=== PATIENT | male | born 1935 | race Caucasian/White ===

== ENCOUNTER → 2022-05-22 10:29 | Outpatient (BNVA) | payer MEDICARE, SELFPAY | PROVIDERS: PCP Family Medicine; Visit Provider Family Medicine | DX: I48.19 Other persistent atrial fibrillation (principal); E78.49 Other hyperlipidemia; I10 Essential (primary) hypertension; I25.10 Atherosclerotic heart disease of native coronary artery without angina pectoris; E78.5 Hyperlipidemia, unspecified | CPT/HCPCS: 80053; 80061; 85025 ==

== ENCOUNTER → 2022-07-23 13:12 | Outpatient (BNVA) | payer MEDICARE, SELFPAY | PROVIDERS: PCP Family Medicine; Visit Provider Internal Medicine Cardiovascular Disease | DX: I48.19 Other persistent atrial fibrillation (principal); E78.49 Other hyperlipidemia; I10 Essential (primary) hypertension; I25.10 Atherosclerotic heart disease of native coronary artery without angina pectoris; Z95.1 Presence of aortocoronary bypass graft; Z95.0 Presence of cardiac pacemaker | CPT/HCPCS: 99213 ==

== ENCOUNTER → 2022-10-09 15:36 | Outpatient (BNVA) | payer MEDICARE, SELFPAY | PROVIDERS: PCP Family Medicine; Visit Provider Internal Medicine Cardiovascular Disease | DX: Z45.010 Encounter for checking and testing of cardiac pacemaker pulse generator [battery] (principal) | CPT/HCPCS: 93296 ==

== ENCOUNTER → 2022-12-26 08:48 | Outpatient (BNVA) | payer MEDICARE, SELFPAY | PROVIDERS: PCP Family Medicine; Visit Provider Family Medicine | DX: E78.5 Hyperlipidemia, unspecified (principal); G62.89 Other specified polyneuropathies; I10 Essential (primary) hypertension; I48.91 Unspecified atrial fibrillation; I25.10 Atherosclerotic heart disease of native coronary artery without angina pectoris | CPT/HCPCS: 80053; 80061; 85025 ==

== ENCOUNTER 2023-01-03 09:47 | Outpatient (CLI) | payer MEDICARE, SELFPAY ==
--- NOTE | 2023-01-03 10:11 | XR_ITS ---
WS: [id number] Chest 2 views, 01/03/2023 Clinical Data: r/o pneumonia Comparison: Portable chest, 10/14/2019 Findings: There is a patchy opacity in the right middle lobe which may represent atelectasis and/or p neumonia. No nodules, masses or effusions are seen. The heart is normal. The pulmonary vascularity is not increased. No pneumothorax is seen. The aortic arch and descending thoracic aorta show tortuosit y. There are midline sternotomy sutures. The 2-lead cardiac pacemaker remains in the same position wi th the generator overlying the left upper chest. XR/XR chest 2V* [id number] Impression: 1. Patchy opacity in right middle lobe which may represent atelectasis and/or m inimal pneumonia. 2. Atherosclerosis.
== END 2023-01-03 09:48 | disposition home or self-care (01) ==
PROVIDERS: PCP Family Medicine; Visit Provider Family Medicine
DX: R05.9 Cough, unspecified (principal); R91.8 Other nonspecific abnormal finding of lung field; I70.90 Unspecified atherosclerosis
CPT/HCPCS: 71046

== ENCOUNTER 2023-01-09 10:47 | Inpatient (IN) | payer MEDICARE, SELFPAY ==
[2023-01-09] VITALS (14 sets, daily range): BP systolic 128–157; BP diastolic 72–89; PULSE 79–95; RESP 18–91; TEMP 36.8–37; O2SAT 3–95
--- NOTE | 2023-01-09 10:55 | W.ED.SOB ---
HPI - SOB/Dyspnea General: Chief Complaint: Shortness of Breath/Dyspnea Stated Complaint: Spurling sent for sob Time Seen by Provider: 01/09/23 10:55 History of Present Illness: HPI Narrative: Mr. Landaverde is a an 87-year-old gentleman with history of CAD, atrial fibrillation, hypertension, hyperlipidemia presenting to the emergency department for shortness of breath. He generally notes symptoms for approximately 1 month and was treated with a course of outpatient antibiotics. Initially had improvement and then worsening again. He returned to PCP and has subsequently completed a course of ciprofloxacin without significant improvement. He received Rocephin in clinic yesterday and despite this return today feeling worse. He has new oxygen requirement since this illness which has now gone from 2 to 3 L. Dyspnea is worse with exertion. He does note cough and generalized malaise. Intensity is moderate to severe. No other specific changes in health, exacerbating, or alleviating factors identified. Onset (ago): week(s) Timing: progressively worsening Severity: severe Exacerbating factors: exertion and coughing Relieving factors: nothing Associated symptoms: Reports chest congestion, chest pain (Tightness) and cough Review of Systems General: Reports: 10 or more systems reviewed and unremarkable except in HPI and below Card: Reports: chest pain (Tightness) Resp: Reports: chest congestion [facility] PFSH: Medical History Atrial fibrillation Stable Coronary artery disease Patient had a four-vessel coronary bypass surgery in 2000 in [place] Hyperlipidemia Hypertension Stable Surgical History S/P CABG (coronary artery bypass graft) S/P cardiac pacemaker procedure Family History Father , age 60 [place] Myocardial infarction CAD (coronary artery disease) Brother , age 52 [place] Myocardial infarction CAD (coronary artery disease) Son Myocardial infarction age 49 [place] CAD (coronary artery disease) Family/Other Suicide Other Hypertension Denies family history of Diabetes Clotting disorder Dementia Chronic kidney disease (CKD) Anesthesia complication Bleeding disorder Lung disease Cancer Stroke Social History Smoking and tobacco status: never smoked Alcohol intake: never Substance/Drug Use: never Highest education level completed: Some College, No Degree service: No Financial difficulty paying for basics: Not Applicable Physical Exam Const: COMMON NORMALS: alert GENERAL APPEARANCE: cooperative, well developed and ill appearing HENMT: COMMON NORMALS: normocephalic and atraumatic HEAD & SCALP: normocephalic and atraumatic Eye: COMMON NORMALS: conjunctivae normal CONJUNCTIVA: Yes conjunctivae normal SCLERA: sclerae normal Neck/C-Spine: COMMON NORMALS: supple GENERAL: Yes trachea midline Resp: EFFORT & INSPECTION: Yes tachypneic AUSCULTATION: wheezes and diminished lung sounds Cardio: COMMON NORMALS: regular rate and regular rhythm RATE: regular rate RHYTHM: regular rhythm GI: COMMON NORMALS: Soft to palpation PALPATION: Yes Soft to palpation and No Tenderness to palpation present (GI) PERCUSSION: normal to percussion Extremity: GENERAL: Yes normal exam except as noted and No edema Neuro: COMMON NORMALS: moves all extremities SENSORIUM/ORIENTATION: Yes alert and No Orientation impaired Psych: COMMON NORMALS: mental status grossly normal and Normal thought process present THOUGHT PROCESS: Normal thought process present Course Vital Signs: Vital signs: Vital Signs Temperature 97.9 F 01/12/23 12:03 Pulse Rate 72 01/12/23 12:03 Respiratory Rate 18 01/12/23 12:03 Blood Pressure 137/69 01/12/23 12:03 Pulse Oximetry 96 01/12/23 12:03 Oxygen Delivery Me thod Nasal Cannula 01/12/23 07:51 Oxygen Flow Rate 4 01/12/23 08:00 MDM - SOB/Dyspnea Medical Decision Making 87-year-old gentleman presenting with respiratory symptoms. Exam as above with oxygen requirement and evidence of increased work of breathing/abnormal lung sounds. EKG demonstrates paced rhythm, no STEMI. Labs with no leukocytosis, normal hemoglobin and platelet count metabolic panel without significant derangement. Negative range 2-hour delta troponin. Viral panel pending. X-ray with emphysematous changes. CTA negative for pulmonary embolism. Patient treated with inhaled breathing treatments, steroids, Tessalon Perles, antibiotics empirically initially and still requiring oxygen with evidence of increased work of breathing on reassessment. Most likely etiology of symptoms of COPD exacerbation with likely pneumonia. The results of ED evaluation were discussed with the patient including plan for admission due to requirement for level of care not available if discharged to prevent significant worsening/deterioration. Patient agreeable with plan. Discussed with hospitalist service who was agreeable to admit patient. Medical Records I reviewed the patient's medical records. Lab Data I reviewed the patient's lab results. 01/12/23 04:28 01/12/23 04:28 Labs/Radiology: Radiology Impressions Chest X-Ray 01/09/23 11:04 IMPRESSION: Emphysematous change and interstitial prominence, without acute airspace disease. Chest CTA 01/09/23 12:18 IMPRESSION: 1. Proximal main pulmonary arteries are normal. Normal segmental and subsegmental pulmonary arteries. No evidence of pulmonary embolus. 2. Prior sternotomy with CABG. 3. 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 4. No acute pulmonary infiltrates. KUB X-Ray 01/09/23 15:55 IMPRESSION: Large colonic stool burden. Laboratory Results WBC 9.9 10^3/uL (4.0-10.0) 01/09/23 11:24 RBC 4.92 10^6/uL (4.1-5.3) 01/09/23 11:24 Hgb 15.3 g/dL (11.7-16.6) 01/09/23 11:24 Hct 48.1 % (42.0-52.0) 01/09/23 11:24 MCV 97.8 fl (80-94) H 01/09/23 11:24 MCH 31.1 pg (28.0-34.0) 01/09/23 11:24 MCHC 31.8 g/dL (30.0-36.0) 01/09/23 11:24 RDW 13.9 % (12.1-15.1) 01/09/23 11:24 Plt Count 170 10^3/cmm (130-400) 01/09/23 11:24 MPV 9.6 fL (7.4-10.4) 01/09/23 11:24 Neut % (Auto) 64.5 % 01/09/23 11:24 Lymph % (Auto) 16.4 % 01/09/23 11:24 [place] % (Auto) 10.9 % 01/09/23 11:24 Eos % (Auto) 6.9 % 01/09/23 11:24 Baso % (Auto) 0.8 % 01/09/23 11:24 Neut # (Auto) 6.40 10^3/uL (1.8-7.7) 01/09/23 11:24 Lymph # (Auto) 1.6 10^3/uL (0.8-4.8) 01/09/23 11:24 [place] # (Auto) 1.1 10^3/uL (0.2-0.9) H 01/09/23 11:24 Eos # (Auto) 0.7 10^3/uL (0.0-0.8) 01/09/23 11:24 Baso # (Auto) 0.1 10^3/uL (0.0-0.1) 01/09/23 11:24 Nucleated RBC % (auto) 0 % 01/09/23 11:24 Nucleated RBCs # 0.0 /100WBC 01/09/23 11:24 Sodium 136 mmol/L (136-145) 01/09/23 11:24 Potassium 4.5 mmol/L (3.5-5.1) 01/09/23 11:24 Chloride 97 mmol/L (98-107) L 01/09/23 11:24 Carbon Dioxide 27 mmol/L (22-29) 01/09/23 11:24 Anion Gap 16.5 (5-19) 01/09/23 11:24 BUN 16 mg/dL (8-23) 01/09/23 11:24 Creatinine 1.1 mg/dL (0.7-1.2) 01/09/23 11:24 GFR Calculation Not Reportable 01/09/23 11:24 Glucose 94 mg/dL (65-115) 01/09/23 11:24 Calculated Osmolality 283 mOsm/kg (285-295) L 01/09/23 11:24 Lactic Acid 1.4 mmol/L (0.5-2.2) 01/09/23 12:10 Calcium 9.9 mg/dL (8.5-10.5) 01/09/23 11:24 Total Bilirubin 0.8 mg/dL (0.15-1.2) 01/09/23 11:24 AST 27 U/L (0-40) 01/09/23 11:24 ALT 17 U/L (0-41) 01/09/23 11:24 Alkaline Phosphatase 57 U/L (40-130) 01/09/23 11:24 Troponin T Baseline 35 ng/L (0-15) H 01/09/23 11:32 Troponin T 120 Minute 32.93 ng/L (0-15) H 01/09/23 13:15 Delta Troponin T -2.07 ABS# (0-10) L 01/09/23 13:15 C-Reactive Protein 22.3 mg/L (0.0-4.9) H 01/09/23 11:24 NT-Pro-B Natriuret Pep 325 pg/mL (0-450) 01/09/23 11:24 Total Protein 7.0 g/dL (6.6-8.7) 01/09/23 11:24 Albumin 4.5 g/dL (3.5-5.2) 01/09/23 11:24 Globulin 2.5 g/dL (1.3-4.6) 01/09/23 11:24 Procalcitonin 0.04 ng/mL (0-0.5) 01/09/23 11:24 TSH 2.23 uIU/mL (0.27-4.20) 01/09/23 11:24 Nasal Influ A H1 2009 PCR Not detected (NOT DETECT) 01/09/23 11:30 Adenovirus (PCR) Not detected (NOT DETECT) 01/09/23 11:30 C. pneumoniae DNA (PCR) Not detected (NOT DETECT) 01/09/23 11:30 Coronavirus 229E (PCR) Not detected (NOT DETECT) 01/09/23 11:30 Human Metapneumovir PCR Not detected (NOT DETECT) 01/09/23 11:30 Influenza A (H1) PCR Not detected (NOT DETECT) 01/09/23 11:30 Influenza A (H3) PCR Not detected (NOT DETECT) 01/09/23 11:30 Influenza Type A (PCR) Not detected (NOT DETECT) 01/09/23 11:30 Influenza Type B (PCR) Not detected (NOT DETECT) 01/09/23 11:30 M. pneumoniae (PCR) Not detected (NOT DETECT) 01/09/23 11:30 Parainfluenza 1 (PCR) Not detected (NOT DETECT) 01/09/23 11:30 Parainfluenza 2 (PCR) Not detected (NOT DETECT) 01/09/23 11:30 Parainfluenza 3 (PCR) Not detected (NOT DETECT) 01/09/23 11:30 Parainfluenza 4 (PCR) Not detected (NOT DETECT) 01/09/23 11:30 RSV Type A (PCR) Not detected (NOT DETECT) 01/09/23 11:30 RSV Type B (PCR) Not detected (NOT DETECT) 01/09/23 11:30 Entero/Rhino (PCR) Not detected (NOT DETECT) 01/09/23 11:30 SARS-CoV-2 (PCR) Not detected (NOT DETECT) 01/09/23 11:30 Discharge Plan Discharge Patient Disposition: Admitted As Inpatient Admit Provider: Wilver Clarke Clinical Impression: Acute exacerbation of chronic obstructive airways disease Condition: Stable Discharge Diet: Cardiac Discharge Activity: Resume usual activity Coding Level of Care Code ED Stopping Builder for John Arndt
--- NOTE | 2023-01-09 11:04 | XRR_ITS ---
PROCEDURE INFORMATION: Exam: XR Chest Exam date and time: 01/09/2023 12:07 PM Age: 87 years old Clinical indication: Shortness of breath; Prior surgery; Surgery date: 6+ months; Surgery type: Pacer, bypass; Patient HX: HX of prostate cancer; Additional info: SOB TECHNIQUE: Imaging protocol: Radiologic exam of the chest. Views: 1 view. COMPARISON: CR XR chest 2V* [id number] 01/03/2023 10:23 AM FINDINGS: Tubes, catheters and devices: Atrioventricular pacemaker. Lungs: Emphysematous change and interstitial prominence, without acute airspace disease. Pleural spaces: No pleural effusion. Heart/Mediastinum: Epicardial fat, without cardiomegaly. Bones/joints: Median sternotomy with broken sutures. Osteopenia and degenerative change. XR/XR chest 1V portable [id number] IMPRESSION: Emphysematous change and interstitial prominence, without acute airspace disease.
--- NOTE | 2023-01-09 11:05 | ECG_ITS ---
[facility] Test Date: 2023-01-09 Pat Name: Kan Landaverde Department: Room: Gender: Male Clinical Specialty Rep: : 1935 Requested By: Gage Richards Order Number: [id number] Alyson MD: Jose Jorge M.D. Measurements Intervals [place] Rate: 103 P: 231 ID: [id number] QRS: -67 QRSD: 144 T: 46 QT: 374 QTc: 491 Interpretive Statements ELECTRONIC ATRIAL PACEMAKER LEFT AXIS DEVIATION [QRS AXIS < -30] RIGHT BUNDLE BRANCH BLOCK [120+ ms QRS DURATION, UPRIGHT V1, 40+ ms S IN I/aVL/V4/V5/V6] Compared to ECG 10/15/2019 05:26:54 Left-axis deviation now present Right bundle-branch block now present Sinus rhythm no longer present T-wave abnormality no longer present Electronically Signed On 01-09-2023 22:22:24 CDT by Jose Jorge M.D. [id number]
[2023-01-09] MEDS: ipratropium-albuterol 3 mL Neb INHALATION ×2 (11:21→20:09)
[2023-01-09] MEDS: predniSONE 20 mg Tablet 60 MG PO (11:28)
[2023-01-09 11:44] LABS: Basophils # 0.1 10^3/uL (0.0-0.1); Basophils % 0.8 %; Eosinophils # 0.7 10^3/uL (0.0-0.8); Eosinophils % 6.9 %; Hematocrit 48.1 % (42.0-52.0); Hemoglobin 15.3 g/dL (11.7-16.6); Lymphocytes # 1.6 10^3/uL (0.8-4.8); Lymphocytes % 16.4 %; Mean Corpuscular HGB Conc 31.8 g/dL (30.0-36.0); Mean Corpuscular Hemoglobin 31.1 pg (28.0-34.0); Mean Corpuscular Volume 97.8 fl (80-94); Mean Platelet Volume 9.6 fL (7.4-10.4); Monocytes # 1.1 10^3/uL (0.2-0.9); Monocytes % 10.9 %; Neutrophils % 64.5 %; Nucleated Red Blood Cells % 0 %; Platelet Count 170 10^3/cmm (130-400); Red Blood Count 4.92 10^6/uL (4.1-5.3); Red Cell Distribution Width 13.9 % (12.1-15.1); White Blood Count 9.9 10^3/uL (4.0-10.0)
[2023-01-09] MEDS: benzonatate 100 mg Capsule PO ×2 (11:55→23:06)
[2023-01-09 12:02] LABS: Troponin(5th) Baseline 35 ng/L (0-15)
[2023-01-09] MEDS: cefepime 2,000 MG in sodium chloride 0.9% (plus) 50 ML 100 MG IV ×2 (12:09→22:39)
--- NOTE | 2023-01-09 12:18 | CT_ITS ---
WS: [id number] CTA OF THE CHEST WITH PULMONARY EMBOLISM PROTOCOL TECHNIQUE: High-resolution contrast enhanced CTA of the chest with coronal and sagittal reformatted i mages with pulmonary embolism protocol. MIP images are also reviewed. CLINICAL INFORMATION: cough, sob COMPARISON: None. DLP: 479.[address] scans at [facility] use at least one of these dose optimization techniques: automated e xposure control; mA and/or kV adjustment per patient size (includes targeted exams where dose is matc hed to clinical indication); or iterative reconstruction. FINDINGS: Proximal main pulmonary arteries are normal. Normal segmental and subsegmental pulmonary arteries. No evidence of pulmonary embolus. Sternotomy. CABG. Slightly aneurysmal ascending thoracic aorta measur ing 4.1 CM. Mild chronic emphysematous changes. No acute pulmonary infiltrates. No focal pneumonia or pleural flu id. Slight bibasilar atelectasis. Normal GE junction. Adrenal glands are normal. Splenic artery calci fication. Hypertrophic changes thoracic spine. CT/CT angio chest PE protcl [id number] IMPRESSION: 1. Proximal main pulmonary arteries are normal. Normal segmental and subsegmen bertha pulmonary arteries. No evidence of pulmonary embolus. 2. Prior sternotomy with CABG. 3. 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 4. No acute pulmonary infiltrates.
[2023-01-09 12:20] LABS: NT Pro B Type Natriuretic Pept 325 pg/mL (0-450); Procalcitonin 0.04 ng/mL (0-0.5)
[2023-01-09 12:32] LABS: Alanine Aminotransferase 17 U/L (0-41); Albumin Level 4.5 g/dL (3.5-5.2); Alkaline Phosphatase 57 U/L (40-130); Anion Gap 16.5 (5-19); Aspartate Amino Transferase 27 U/L (0-40); Blood Urea Nitrogen 16 mg/dL (8-23); C Reactive Protein 22.3 mg/L (0.0-4.9); Calcium 9.9 mg/dL (8.5-10.5); Carbon Dioxide 27 mmol/L (22-29); Chloride 97 mmol/L (98-107); Globulin 2.5 g/dL (1.3-4.6); Glucose 94 mg/dL (65-115); Osmolality Calculated 283 mOsm/kg (285-295); Potassium 4.5 mmol/L (3.5-5.1); Sodium 136 mmol/L (136-145); Total Bilirubin 0.8 mg/dL (0.15-1.2)
[2023-01-09 12:38] LABS: Lactic Sepsis W/Reflex 1.4 mmol/L (0.5-2.2)
[2023-01-09] MEDS: iohexol 350 mg/mL 500 mL Btl (per mL) IV (12:58)
[2023-01-09] MEDS: vancomycin 2,000 MG/400 ML PIGGYBACK 200 MG IV (13:03)
--- NOTE | 2023-01-09 13:05 | ECG_ITS ---
[facility] Test Date: 2023-01-09 Pat Name: Kan Landaverde Department: Room: Gender: Male Marine Consultant: : 1935 Requested By: Gage Richards Order Number: [id number] Alyson MD: Jose Jorge M.D. Measurements Intervals [place] Rate: 75 P: -67 IN: 189 QRS: 10 QRSD: 102 T: 59 QT: 412 QTc: 462 Interpretive Statements ELECTRONIC ATRIAL PACEMAKER ABNORMAL RHYTHM ECG Compared to ECG 01/09/2023 11:16:30 Left-axis deviation no longer present Right bundle-branch block no longer present Electronically Signed On 01-09-2023 22:43:33 CDT by Jose Jorge M.D. [id number]
[2023-01-09 13:27] LABS: Adenovirus Not Detected (NOT DETECT); Chlamydia Pneumoniae Not Detected (NOT DETECT); Coronavirus 229E,HKU1,NL63,OC4 Not Detected (NOT DETECT); Human Metapneumovirus Not Detected (NOT DETECT); Human Rhinovirus/Enterovirus Not Detected (NOT DETECT); Influenza A Not Detected (NOT DETECT); Influenza A H1 Not Detected (NOT DETECT); Influenza A H1-2009 Not Detected (NOT DETECT); Influenza A H3 Not Detected (NOT DETECT); Influenza B Not Detected (NOT DETECT); Mycoplasma Pneumoniae Not Detected (NOT DETECT); Parainfluenza Virus Type 1 Not Detected (NOT DETECT); Parainfluenza Virus Type 2 Not Detected (NOT DETECT); Parainfluenza Virus Type 3 Not Detected (NOT DETECT); Parainfluenza Virus Type 4 Not Detected (NOT DETECT); Respiratory Syncytial Virus A Not Detected (NOT DETECT); Respiratory Syncytial Virus B Not Detected (NOT DETECT); SARS-COV-2 Not Detected (NOT DETECT)
[2023-01-09 13:42] LABS: Troponin 5 2HR 32.93 ng/L (0-15)
[2023-01-09 13:43] LABS: Troponin 5 2HR Delta -2.07 ABS# (0-10)
[2023-01-09] MEDS: albuterol 2.5 mg/3 mL Neb INHALATION (13:45)
--- NOTE | 2023-01-09 15:01 | PM.HP ---
Providers/Chief Complaint Admitting Physician: Wilver Clarke MD Primary Care Provider: Jan De Paz MD Chief Complaint: Spurling sent for sob History of Present Illness Kan Landaverde is a 87 year old male with a past medical history of fibrillation, not on anticoagulation, history of CABG, hypertension, hyperlipidemia, who has been on multiple rounds of antibiotics, steroids, for about a month history of cough, shortness of breath, fatigue, malaise. Patient tells me that his symptoms started roughly about a month ago where he went to urgent care he was having cough, shortness of breath, fevers, chills, he was given an antibiotic shot, which she presume is the Rocephin, and Decadron. However he did get better, so he saw his primary care was given another shot of steroids and antibiotics, but continued to not improve, then he was placed on ciprofloxacin. He denies any chest pain, no palpitations. Does complain of constipation. Abdominal bloating. No bloody or black stools reported. He does report that recently he has been coughing and choking more after meals. No history of aspiration. No fevers currently, no chills. No recent travel. No history of COVID-19. No history of calf pain or calf swelling, hemoptysis, no recent surgeries, no prolonged immobility, Review of Systems Const: Denies: fever(s) or chills Eyes: Denies: change in vision Card: Reports: edema; Denies: chest pain Resp: Reports: dyspnea and non-productive cough GI: Denies: abdominal pain : Denies: flank pain or difficulty urinating Musc: Denies: neck pain or back pain Skin/Breast: Denies: rash Neuro: Denies: headache(s) Medications/Allergies Home Medications Medication Instructions Recorded Confirmed Last Taken Type aspirin 81 mg chewable tablet 81 mg PO BID 10/14/19 01/09/23 01/08/23 History cholecalciferol (vitamin D3) 25 1,000 unit PO DAILY 10/14/19 01/09/23 01/08/23 History mcg (1,000 unit) capsule (Vitamin D3) gabapentin 100 mg capsule 100 mg PO BID 01/25/20 01/09/23 01/08/23 History Walking Cane #1 ea 05/11/20 01/09/23 Unknown Rx clopidogrel 75 mg tablet 75 mg PO DAILY #90 tabs 05/22/22 01/09/23 01/08/23 Rx losartan 25 mg tablet 25 mg PO DAILY #30 tabs 05/22/22 01/09/23 01/08/23 Rx isosorbide mononitrate 30 mg 30 mg PO BID #180 tabs 07/17/22 01/09/23 01/08/23 Rx tablet,extended release 24 hr albuterol sulfate 90 mcg/actuation 2 puff inhalation Q4H PRN 12/31/22 01/09/23 Unknown Rx aerosol inhaler (Ventolin HFA) shortness of breath or wheezing #8.5 grams ciprofloxacin HCl 500 mg tablet 500 mg PO BID #20 tabs 12/31/22 01/09/23 Unknown Rx oxygen at 2L per NC #1 ea 12/31/22 01/09/23 Unknown Rx dextromethorphan-guaifenesin 10 10 ml PO Q4H PRN Cough 01/09/23 01/09/23 Unknown History mg-100 mg/5 mL oral syrup (Qamar DM) ranolazine 500 mg tablet,extended 500 mg PO BID 01/09/23 01/09/23 01/08/23 History release,12 hr rosuvastatin 20 mg tablet (Crestor) 20 mg PO QPM 01/09/23 01/09/23 01/08/23 History sertraline 100 mg tablet 100 mg PO DAILY 01/09/23 01/09/23 01/08/23 History sodium chloride 5 % eye ointment See Rx Instructions .Route .COMPLEX 01/09/23 01/09/23 Unknown History (Enrique 128) sotalol 80 mg tablet 80 mg PO BID 01/09/23 01/09/23 01/08/23 History temazepam 15 mg capsule 15 mg PO QPM 01/09/23 01/09/23 01/08/23 History vitamin B12 2,500 mcg-folic acid 1 tab PO DAILY 01/09/23 01/09/23 01/08/23 History 400 mcg disintegrating tablet Allergies Allergy/AdvReac Type Severity Reaction Status Date / Time Penicillins Allergy Intermediate mouth swell Verified 01/09/23 11:04 morphine Allergy Unknown Verified 01/09/23 11:04 tetanus and diphtheria Allergy Unknown Verified 01/09/23 11:04 toxoids azithromycin AdvReac Intermediate diarrhea Verified 01/09/23 11:04 PFSH Acute PFSH: Medical History Atrial fibrillation Stable Coronary artery disease Patient had a four-vessel coronary bypass surgery in 2000 in [place] Hyperlipidemia Hypertension Stable Surgical History S/P CABG (coronary artery bypass graft) S/P cardiac pacemaker procedure Family History Father , age 60 [place] Myocardial infarction CAD (coronary artery disease) Brother , age 52 [place] Myocardial infarction CAD (coronary artery disease) Son Myocardial infarction age 49 [place] CAD (coronary artery disease) Family/Other Suicide Other Hypertension Denies family history of Diabetes Clotting disorder Dementia Chronic kidney disease (CKD) Anesthesia complication Bleeding disorder Lung disease Cancer Stroke Social History Smoking and tobacco status: never smoked Alcohol intake: never Substance/Drug Use: never Highest education level completed: Some College, No Degree service: No Financial difficulty paying for basics: Not Applicable Vitals/I&O/Wt Last Vital Signs Temp 98.2 F 01/09/23 10:58 Pulse 83 01/09/23 13:50 Resp 91 H 01/09/23 13:47 BP 143/72 01/09/23 12:54 Pulse Ox 3 L 01/09/23 13:47 O2 Del Method Nasal Cannula 01/09/23 13:47 O2 Flow Rate 3 01/09/23 12:28 01/09/23 01/09/23 01/09/23 06:59 14:59 22:59 Intake Total 50 / 50 Balance 50 / 50 Weight last 48 hrs Weight 104.326 kg Physical Exam Const: COMMON NORMALS: no acute distress and patient oriented x3 GENERAL APPEARANCE: cooperative, well kempt and well developed HENMT: COMMON NORMALS: normocephalic and Normal external nose present HEAD & SCALP: normocephalic NOSE: Normal external nose present THROAT: posterior oropharynx normal Eye: COMMON NORMALS: Equal, round and reactive pupils present, EOMs intact bilaterally, conjunctivae normal and no scleral icterus CONJUNCTIVA: Yes conjunctivae normal PUPIL: Yes Equal, round and reactive pupils present Neck/C-Spine: COMMON NORMALS: full ROM, no lymphadenopathy, no JVD, Thyroid normal and No carotid bruits THYROID: Thyroid normal Lymph: LYMPHATIC: no lymphadenopathy noted Chest: COMMONS NORMALS: normal inspection of the chest Resp: COMMON NORMALS: normal respiratory effort, No retractions and No use of accessory muscles AUSCULTATION: wheezes Cardio: COMMON NORMALS: regular rate, regular rhythm, S1 normal heart sound present, S2 normal heart sound present, No murmurs present (Cardio) and Peripheral pulses 2+ throughout RATE: regular rate RHYTHM: regular rhythm HEART SOUNDS: S1 normal heart sound present and S2 normal heart sound present PERIPHERAL PULSES: Peripheral pulses 2+ throughout GI: COMMON NORMALS: Normal to inspection, nondistended, normoactive bowel sounds present, Soft to palpation and non-tender PALPATION: Yes Soft to palpation and Yes No hepatosplenomegaly present : BLADDER/KIDNEY EXAM: Yes no CVA tenderness Back/Pelvis: COMMON NORMALS: no CVA tenderness Extremity: COMMON NORMALS: full ROM, no calf tenderness and no pedal edema Neuro: COMMON NORMALS: patient oriented x3, CN's II-XII intact bilaterally, moves all extremities, no focal motor deficits and no sensory deficits noted MENINGEAL SIGNS: Yes no meningeal signs Psych: COMMON NORMALS: mental status grossly normal, Normal thought process present, cooperative and speech normal APPEARANCE: Yes well kempt SPEECH: Yes normal speech THOUGHT PROCESS: Normal thought process present Skin: COMMON NORMALS: turgor normal and no jaundice GENERAL SKIN EXAM: turgor normal Data 01/09/23 11:24 01/09/23 11:24 Micro: Microbiology 01/09/23 11:24 Blood Culture - Preliminary Blood SPECIMEN COLLECTED 01/09/23 11:24 Blood Culture - Preliminary Blood SPECIMEN COLLECTED CXR: My impression: No acute infiltrates EKG 1: My Interpretation: Pacemaker, sinus tachycardia, right bundle branch block, paced rhythm, Other data: Reviewed blood work, A&P Assessment and plan (1) Acute respiratory failure with hypoxia: (2) Acute exacerbation of chronic obstructive airways disease: (3) S/P CABG (coronary artery bypass graft): (4) Atrial fibrillation: Qualifiers: Atrial fibrillation type: persistent (not longstanding) Qualified Code(s): I48.19 - Other persistent atrial fibrillation (5) Hyperlipidemia: Qualifiers: Hyperlipidemia type: other hyperlipidemia Qualified Code(s): E78.49 - Other hyperlipidemia (6) Hypertension: Qualifiers: Hypertension type: unspecified Qualified Code(s): I10 - Essential (primary) hypertension (7) Coronary artery disease: Qualifiers: Coronary Disease-Associated Artery/Lesion type: [place] artery [place] vs. transplanted heart: [place] heart Associated angina: without angina Qualified Code(s): I25.10 - Atherosclerotic heart disease of [place] coronary artery without angina pectoris (8) Pneumonia: Plan Acute hypoxic respiratory failure -Potentially secondary to underlying pneumonia, has had multiple rounds of antibiotics, Rocephin, Decadron, Cipro however he has no white count, Pro-Shmuel within normal limits CRP slightly elevated, CT angiogram no focal infiltrates, could be typical infection -He did smoke he tells me roughly 50 years ago, has been a long time since he quit, possible COPD exacerbation? -Respiratory viral panel within normal limits -The other thought he does report choking and coughing after his meals, possible aspiration pneumonia, aspiration pneumonitis -We will place on clears, speech therapy eval -Follow blood cultures, sputum cultures, MRSA nares -Continue vancomycin, cefepime -Continue Decadron -Aspiration precautions -His troponins are slightly elevated, EKG no acute ST-T wave disc we will order cardiac echo -Resume home medications -Constipation, MiraLAX, KUB -Full code -Lovenox for DVT prophylaxis Spoke to ER physician, spoke to patient, spoke to patient's , daughters all at bedside Attestations Medical Necessity Statement*: Patient requires hospitalization for acute hypoxic respiratory failure, COPD exacerbation, pneumonia Diagnoses Acute respiratory failure with hypoxia J96.01 Acute exacerbation of chronic obstructive airways disease J44.1 S/P CABG (coronary artery bypass graft) Z95.1 Atrial fibrillation I48.19 Atrial fibrillation type: persistent (not longstanding) Hyperlipidemia E78.49 Hyperlipidemia type: other hyperlipidemia Hypertension I10 Hypertension type: unspecified Coronary artery disease I25.10 Coronary Disease-Associated Artery/Lesion type: [place] artery [place] vs. transplanted heart: [place] heart Associated angina: without angina Pneumonia J18.9
--- NOTE | 2023-01-09 15:55 | USCV_ITS ---
Kan Landaverde Age: 87 Gender: M : 1935 Exam Date: 01/09/2023 20:33 Ordering Phys: Wilver Clarke MD Technologist: REJI Exam Location: [facility] [place] Indication: sob, MAYER, fatigue, malaise. History CABG 2000, O2 dependent at 3L, cough, History of atrial fibrillation. BP: 144 / 79 HR: 85 Rhythm: paced rhythm Technical Quality: Very technically difficult and limited study MEASUREMENTS (Male / Female) Normal Values 2D ECHO LV Diastolic Diameter PLAX 3.5 cm 4.2 - 5.9 / 3.9 - 5.3 cm LV Systolic Diameter PLAX 2.6 cm IVS Diastolic Thickness 1.4 cm 0.6 - 1.0 / 0.6 - 0.9 cm IVS Systolic Thickness 1.7 cm LVPW Diastolic Thickness 1.3 cm 0.6 - 1.0 / 0.6 - 0.9 cm LVPW Systolic Thickness 1.8 cm LVOT Diameter 1.8 cm LV Ejection Fraction 2D Teich 51.4 % LV Ejection Fraction MOD 2C 54.1 % LV Ejection Fraction 2C AL 59.7 % LA Diameter 4.4 cm LA Width 4.8 cm LA Height 5.4 cm RA Width 4.2 cm RA Height 4.1 cm Aorta at Sinotubular Diameter 3.2 cm M-MODE Aortic Annulus Diameter 3.7 cm LA Ao Ratio MM 1.3 DOPPLER AV Peak Velocity 296.0 cm/s LVOT Peak Velocity 113.0 cm/s AV Area Cont Eq vti 1.2 cm squared AV Area Cont Eq pk 1.0 cm squared TR Peak Velocity 222.7 cm/s TR Peak Gradient 19.8 mmHg TV Peak E Velocity 38.0 cm/s Right Atrial Pressure 5.0 mmHg Pulmonary Artery Systolic Pressu 24.8 mmHg PV Peak Velocity 118.0 cm/s RV Acceleration Time 0.1 s RV Ejection Time 0.3 s RV AcT/ET 0.2 FINDINGS Left Ventricle Normal left ventricular cavity size. Normal left ventricular systolic function. Left ventricular ejection fraction is estimated at 55 %. Study is inadequate for regional wall motion abnormality. Right Ventricle Normal right ventricular size and systolic function. Right ventricular systolic pressure 27 mmHg. Right Atrium Normal right atrial size. Left Atrium Normal left atrial size. Mitral Valve Mildly thickened mitral valve. Aortic Valve Aortic valve not well visualized. No aortic valve stenosis. No aortic valve regurgitation. Tricuspid Valve Structurally normal tricuspid valve. Pulmonic Valve Pulmonic valve not well visualized. Pericardium No pericardial effusion. Aorta Aorta not well visualized. IVC Inferior vena cava not visualized. CONCLUSIONS 1. This is a technically difficult study. 2. Normal left ventricular cavity size and systolic function. Left ventricular ejection fraction is estimated at 55 %. Study is inadequate for regional wall motion abnormality. 3. No prior similar studies to compare. Kathy Green MD (Electronically Signed) Final Date: 10 Jan 2023 08:02 S
--- NOTE | 2023-01-09 15:55 | XRR_ITS ---
PROCEDURE INFORMATION: Exam: XR Abdomen Exam date and time: 01/09/2023 3:03 PM Age: 87 years old Clinical indication: Constipation; Prior surgery; Surgery date: 6+ months; Patient HX: HX of colon cancer TECHNIQUE: Imaging protocol: Radiologic exam of the abdomen. Views: Frontal supine view of the abdomen. 1 View. COMPARISON: CT kidney stone [id number] 04/15/2021 6:47 PM FINDINGS: Gastrointestinal tract: Large colonic stool burden. No bowel dilation. Bones/joints: Unremarkable. XR/XR KUB portable [id number] IMPRESSION: Large colonic stool burden.
--- NOTE | 2023-01-09 15:55 | USCV_ITS ---
Kan Landaverde Age: 87 Gender: M : 1935 Exam Date: 01/09/2023 19:00 Ordering Phys: Wilver Clarke MD Technologist: REJI Exam Location: [facility] [place] Indication: sob, malaise , fatigue. No history of DVT per patient. History of CAD s/p CABG utilizing LEFT GSV for grafting. HISTORY: sob, malaise , fatigue. No history of DVT per patient. History of CAD s/p CABG utilizing LEFT GSV for grafting. PROCEDURES: Venous duplex imaging was performed in bilateral lower extremities. The following venous structures were evaluated: common femoral vein, profunda vein, proximal portion of the greater saphenous vein, superficial femoral vein, and the popliteal vein. In addition, the posterior tibial veins were evaluated. Serial compression, augmentation maneuvers, and spectral Doppler flow evaluation were performed, which were normal. Bilaterally, the common femoral, superficial femoral, profunda femoral, popliteal, posterior tibial, and greater saphenous veins were identified and interrogated in the standard fashion. These veins were found to be easily compressible with spontaneous blood flow. No evidence of thrombus noted. Left greater saphenous vein is surgically absent s/p CABG. CONCLUSIONS No evidence of right lower extremity DVT. No evidence of left lower extremity DVT. LEFT GSV surgically absent s/p CABG Len Perez MD (Electronically Signed) Final Date: 10 Jan 2023 09:53 S
[2023-01-09 16:37] LABS: Thyroid Stimulating Hormone 2.23 uIU/mL (0.27-4.20)
--- NOTE | 2023-01-09 16:41 | PC.PHAR ---
Vanc trough to be drawn before 3rd dose..... pending stable renal function Patient: Floor: Age: 87 yo Serum creatinine: 1.1 mg/dL Height: 72.8 Inches Weight (kg): 104 IBW (kg): 79.44 Dosing wt(kg): 104 Estimated Creatinine clearance (ml/min): 52.2 CRCL method: Cockcroft and Gault using ibw(default). Drug selected: Vancomycin Loading dose (mg): Vd (liters): 72.8 (factor used: 0.7 L/kg) Dylan (hr-1): 0.048 Half life (hrs): 14.44 CLvanco=?? 3.494 L/hr Recommended dose: 1500 mg Interval: 18 hrs Infusion time (hrs): 1 Predicted peak (mcg/mL): 34.8 Predicted trough (mcg/mL): 15.39 Total body weight is being used for vancomycin dosing. Recommendations: Give Vancomycin 1500 mg q 18 hrs with an expected Cpeak of 34.8 mcg/ml and an expected Ctrough of 15.39 mcg/ml AUC 0-24 /MEGAN Data: MEGAN 0.5 mcg/mL:?? AUC/MEGAN:? 1144.8 MEGAN 1.0 mcg/mL:?? AUC/MEGAN:? 572.4 --------- MEGAN 1.5 mcg/mL:?? AUC/MEGAN:? 381.6 MEGAN 2.0 mcg/mL:?? AUC/MEGAN:? 286.2 Renal dosing of other antibiotics (review renal dosing of other medications and list guidelines here): Thank you for the consult, will continue to follow. Signature: Yves Love, BethD
[2023-01-09] MEDS: enoxaparin 40 mg/0.4 mL Syringe SUBCUT (16:55)
[2023-01-09] MEDS: polyethylene glycol 3350 Pkt 17 gm PO (16:55)
[2023-01-09] MEDS: temazepam 15 mg Capsule PO (16:55)
[2023-01-09] MEDS: atorvastatin 40 mg Tablet 80 MG PO (16:56)
[2023-01-09] MEDS: aspirin 81 mg Chew Tablet PO (16:56)
--- NOTE | 2023-01-09 17:04 | ECG_ITS ---
[facility] Test Date: 2023-01-09 Pat Name: Kan Landaverde Department: Room: 250 Gender: Male Analytical Manager: : 1935 Requested By: Gage Richards Order Number: [id number] Alyson MD: Jose Jorge M.D. Measurements Intervals [place] Rate: 81 P: 21 UT: 171 QRS: 39 QRSD: 105 T: 70 QT: 403 QTc: 471 Interpretive Statements SINUS RHYTHM INCOMPLETE RIGHT BUNDLE BRANCH BLOCK [90+ ms QRS DURATION, TERMINAL R IN V1/V2, 40+ ms S IN I/aVL/V4/V5/V6] Compared to ECG 01/09/2023 13:55:00 Incomplete right bundle-branch block now present Atrial-paced complex(es) or rhythm no longer present Electronically Signed On 01-09-2023 22:56:49 CDT by Jose Jorge M.D. [id number]
[2023-01-09] MEDS: dexamethasone 10 mg/mL INJ 6 MG IVP (17:25)
[2023-01-09] MEDS: pantoprazole 40 mg SDV IVP (17:26)
[2023-01-09 18:42] LABS: Troponin 5 6HR 29.52 ng/L (0-15)
[2023-01-09 18:47] LABS: Troponin 5 6HR Delta -5.48 ng/L (0-12)
[2023-01-09] MEDS: gabapentin 100 mg Capsule PO (19:33)
[2023-01-09] MEDS: sotalol 80 mg Tablet PO (19:33)
[2023-01-09] MEDS: isosorbide mononitrate ER 30 mg Tablet PO (19:33)
[2023-01-09] MEDS: ranolazine (12HR) 500 mg Tablet PO (19:34)
[2023-01-09] MEDS: fluticasone nasal spray 16gm Btl 1 SPRAY NASAL (19:34)
[2023-01-09] MEDS: guaiFENesin-dextromethorphan UDC 10 mL PO (19:38)
[2023-01-09] MEDS: budesonide 0.5 mg/2 mL Neb INHALATION (20:09)
--- NOTE | 2023-01-09 21:36 | PC.NURSE ---
Patient c/o nasal congestion. Patient states that Flonase doesn't work. Patient becoming frustrated and loudly states to nurse You can get oxygen if you can't breathe through your nose. Patient asking for saline nasal spray. Dr. Small notified and ordered saline nasal spray.
[2023-01-09] MEDS: saline nasal spray 44mL Btl 1 SPRAY NASAL (21:43)
--- NOTE | 2023-01-09 22:39 | PC.NURSE ---
Patient states it has been 3 days since he has had a BM. Patient is asking for something to help him poop and saying that the Miralax isn't working and he states I'm not sure they even gave me that Miralax. Dr. Small notified. Lactulose x2 doses ordered.
[2023-01-09] MEDS: lactulose oral liq 20 gm/30 mL UDC PO (22:56)
[2023-01-10] VITALS (11 sets, daily range): BP systolic 105–153; BP diastolic 61–77; PULSE 66–100; RESP 16–20; TEMP 36.3–36.8; O2SAT 90–96
[2023-01-10] MEDS: vancomycin 1,500 MG/300 ML PIGGYBACK 200 MG IV ×2 (04:27→23:13)
[2023-01-10 05:02] LABS: Basophils % 0.1 %; Hematocrit 41.2 % (42.0-52.0); Hemoglobin 13.4 g/dL (11.7-16.6); Lymphocytes # 1.2 10^3/uL (0.8-4.8); Lymphocytes % 16.3 %; Mean Corpuscular HGB Conc 32.5 g/dL (30.0-36.0); Mean Corpuscular Hemoglobin 30.9 pg (28.0-34.0); Mean Corpuscular Volume 94.9 fl (80-94); Monocytes # 0.5 10^3/uL (0.2-0.9); Monocytes % 6.2 %; Neutrophils # 5.64 10^3/uL (1.8-7.7); Neutrophils % 77.1 %; Nucleated Red Blood Cells % 0 %; Platelet Count 182 10^3/cmm (130-400); Red Blood Count 4.34 10^6/uL (4.1-5.3); Red Cell Distribution Width 13.5 % (12.1-15.1); White Blood Count 7.3 10^3/uL (4.0-10.0)
[2023-01-10 05:22] LABS: Anion Gap 13.2 (5-19); Blood Urea Nitrogen 15 mg/dL (8-23); Calcium 9.8 mg/dL (8.5-10.5); Carbon Dioxide 29 mmol/L (22-29); Chloride 99 mmol/L (98-107); Glucose 138 mg/dL (65-115); Magnesium 1.9 mg/dL (1.7-2.3); Osmolality Calculated 287 mOsm/kg (285-295); Phosphorus 2.6 mg/dL (2.5-4.5); Potassium 4.2 mmol/L (3.5-5.1); Sodium 137 mmol/L (136-145)
[2023-01-10] MEDS: benzonatate 100 mg Capsule PO (05:56)
[2023-01-10] MEDS: albuterol 2.5 mg/3 mL Neb INHALATION (08:09)
[2023-01-10] MEDS: budesonide 0.5 mg/2 mL Neb INHALATION ×2 (08:09→20:47)
[2023-01-10] MEDS: aspirin 81 mg Chew Tablet PO ×2 (09:42→17:06)
[2023-01-10] MEDS: sertraline 100 mg Tablet PO (09:42)
[2023-01-10] MEDS: losartan 50 mg Tablet 25 MG PO (09:43)
[2023-01-10] MEDS: clopidogrel 75 mg Tablet PO (09:44)
[2023-01-10] MEDS: ranolazine (12HR) 500 mg Tablet PO ×2 (09:47→21:00)
[2023-01-10] MEDS: gabapentin 100 mg Capsule PO ×2 (09:47→21:00)
[2023-01-10] MEDS: sotalol 80 mg Tablet PO ×2 (09:47→21:00)
[2023-01-10] MEDS: isosorbide mononitrate ER 30 mg Tablet PO ×2 (09:47→21:00)
--- NOTE | 2023-01-10 10:27 | PC.CHAP ---
Pastoral Care Encounter/Spiritual Assessment Type of Contact [] Declined gang leader visit [] Patient/Family/Request visit [] Outpatient visit [] Follow-up visit [] Physician referral [] Code/Alert [x] Routine visit [] Staff referral [] Actively dying [] Patient sleeping [] Family support [] [] Out of room [] Palliative care [] [x] Receiving care in room [] Pre-surgical visit [] Trauma [] Long length of stay [] ICU visit [] Other: Relational/Emotional Strength [x] Patient feels connected with others/family/visitors/staff [] Distress [] Loneliness/isolation [] Abandonment Spirituality of Patient [x] Person of Nia [] Attends Islam of their Nia [x] Believes in Prayer [] Reads Bible or Oriental Orthodox materials [] There are Spiritual issues to be addressed Video Editor Interventions [x] Prayer [x] Active listening [x] Non-anxious presence [x] Spiritual/emotional support [] Crisis/trauma care [x] Spiritual counseling [] Bereavement support [] Provided bereavement packet [] Provided Bible/devotional materials [] Provided toy/stuffed animal, coloring book to patient or family member [] Provided Communion [] Anointing/[place] [] Salvation [x] Completed spiritual assessment [] Other: Impact on Illness or Injury [] Angry [] Fearful [] Anxious [] Often cries [] Exhaustion [] Unable to work [] Unable to attend sabianist [] Unable to walk/stand [] Unable to read [] Unable to drive [] Unable to eat/drink [] Unable to sleep [] Unable to be with family [] Patient intubated [] Other: Summary Feeling better waiting doctors report wewll go go home Time spent with patient 10 mins
[2023-01-10] MEDS: ipratropium-albuterol 3 mL Neb INHALATION ×2 (11:43→20:47)
[2023-01-10] MEDS: cefepime 2,000 MG in sodium chloride 0.9% (plus) 50 ML 100 MG IV (14:43)
--- NOTE | 2023-01-10 16:04 | P.PN_ITS ---
Subjective Subjective: patient was seen this morning, working with speech therapy, still having wheezing,no fever Vitals/I&O/Wt Last Vital Signs Temp 98.2 F 01/10/23 15:31 Pulse 100 01/10/23 15:31 Resp 18 01/10/23 15:31 BP 121/61 01/10/23 15:31 Pulse Ox 93 01/10/23 15:31 O2 Del Method Nasal Cannula 01/10/23 15:31 O2 Flow Rate 3 01/10/23 11:43 01/10/23 01/10/23 01/10/23 06:59 14:59 22:59 Intake Total 300 / 1040 840 / 840 Balance 300 / 1040 840 / 840 Weight last 48 hrs Weight 104.326 kg Physical Exam Const: COMMON NORMALS: no acute distress and patient oriented x3 Resp: COMMON NORMALS: normal respiratory effort, No retractions and No use of accessory muscles AUSCULTATION: wheezes Cardio: COMMON NORMALS: regular rate, regular rhythm, S1 normal heart sound present and S2 normal heart sound present RATE: regular rate RHYTHM: regular rhythm HEART SOUNDS: S1 normal heart sound present and S2 normal heart sound present GI: COMMON NORMALS: Normal to inspection, nondistended, normoactive bowel sounds present and non-tender Extremity: COMMON NORMALS: no pedal edema Neuro: COMMON NORMALS: patient oriented x3 Psych: COMMON NORMALS: mental status grossly normal Data 01/10/23 04:23 01/10/23 04:23 Micro: Microbiology 01/09/23 11:30 Gram Stain - Final Sputum - Expectorated Sputum Sputum Culture - Preliminary 01/09/23 11:24 Blood Culture - Preliminary Blood NEGATIVE TO DATE 01/09/23 11:24 Blood Culture - Preliminary Blood NEGATIVE TO DATE A&P Assessment and plan (1) Acute respiratory failure with hypoxia: (2) Acute exacerbation of chronic obstructive airways disease: (3) S/P CABG (coronary artery bypass graft): (4) Atrial fibrillation: Qualifiers: Atrial fibrillation type: persistent (not longstanding) Qualified Code(s): I48.19 - Other persistent atrial fibrillation (5) Hyperlipidemia: Qualifiers: Hyperlipidemia type: other hyperlipidemia Qualified Code(s): E78.49 - Other hyperlipidemia (6) Hypertension: Qualifiers: Hypertension type: unspecified Qualified Code(s): I10 - Essential (primary) hypertension (7) Coronary artery disease: Qualifiers: Coronary Disease-Associated Artery/Lesion type: [place] artery [place] vs. transplanted heart: [place] heart Associated angina: without angina Qualified Code(s): I25.10 - Atherosclerotic heart disease of [place] coronary artery without angina pectoris (8) Pneumonia: Plan Acute hypoxic respiratory failure -Potentially secondary to underlying pneumonia, has had multiple rounds of antibiotics, Rocephin, Decadron, Cipro however he has no white count, Pro-Shmuel within normal limits CRP slightly elevated, CT angiogram no focal infiltrates, could be typical infection -He did smoke he tells me roughly 50 years ago, has been a long time since he quit, possible COPD exacerbation? -Respiratory viral panel within normal limits -The other thought he does report choking and coughing after his meals, possible aspiration pneumonia, aspiration pneumonitis -We will place on clears, speech therapy eval -Follow blood cultures, sputum cultures, MRSA nares -Continue vancomycin, cefepime -Continue Decadron -Aspiration precautions -His troponins are slightly elevated, EKG no acute ST-T wave disc we will order cardiac echo -Resume home medications -Constipation, MiraLAX, had several BM -Full code -Lovenox for DVT prophylaxis spoke to patient, spoke to patient's , daughters all at bedside Attestations Medical Necessity Statement*: patient requires hospitalization due to respiratory failure Diagnoses Acute respiratory failure with hypoxia J96.01 Acute exacerbation of chronic obstructive airways disease J44.1 S/P CABG (coronary artery bypass graft) Z95.1 Atrial fibrillation I48.19 Atrial fibrillation type: persistent (not longstanding) Hyperlipidemia E78.49 Hyperlipidemia type: other hyperlipidemia Hypertension I10 Hypertension type: unspecified Coronary artery disease I25.10 Coronary Disease-Associated Artery/Lesion type: [place] artery [place] vs. transplanted heart: [place] heart Associated angina: without angina Pneumonia J18.9
[2023-01-10] MEDS: temazepam 15 mg Capsule PO (17:06)
[2023-01-10] MEDS: atorvastatin 40 mg Tablet 80 MG PO (17:06)
[2023-01-10] MEDS: docusate sodium 100 mg Capsule PO (17:07)
[2023-01-10] MEDS: dexamethasone 10 mg/mL INJ 6 MG IVP (17:07)
[2023-01-10] MEDS: enoxaparin 40 mg/0.4 mL Syringe SUBCUT (17:07)
[2023-01-10] MEDS: pantoprazole 40 mg SDV IVP (17:37)
[2023-01-11] VITALS (10 sets, daily range): BP systolic 130–157; BP diastolic 71–88; PULSE 61–107; RESP 16–18; TEMP 36.4–36.8; O2SAT 88–94
[2023-01-11] MEDS: cefepime 2,000 MG in sodium chloride 0.9% (plus) 50 ML 100 MG IV ×2 (00:42→12:04)
[2023-01-11 04:58] LABS: Basophils % 0.1 %; Hematocrit 39.2 % (42.0-52.0); Hemoglobin 12.9 g/dL (11.7-16.6); Lymphocytes % 12.1 %; Mean Corpuscular HGB Conc 32.9 g/dL (30.0-36.0); Mean Corpuscular Hemoglobin 31.2 pg (28.0-34.0); Mean Corpuscular Volume 94.7 fl (80-94); Mean Platelet Volume 9.7 fL (7.4-10.4); Monocytes # 0.4 10^3/uL (0.2-0.9); Monocytes % 5.3 %; Neutrophils # 6.68 10^3/uL (1.8-7.7); Neutrophils % 82.1 %; Nucleated Red Blood Cells % 0 %; Platelet Count 183 10^3/cmm (130-400); Red Blood Count 4.14 10^6/uL (4.1-5.3); Red Cell Distribution Width 13.7 % (12.1-15.1); White Blood Count 8.1 10^3/uL (4.0-10.0)
[2023-01-11 05:18] LABS: Anion Gap 14.2 (5-19); Blood Urea Nitrogen 18 mg/dL (8-23); Calcium 9.3 mg/dL (8.5-10.5); Carbon Dioxide 27 mmol/L (22-29); Chloride 99 mmol/L (98-107); Glucose 123 mg/dL (65-115); Osmolality Calculated 285 mOsm/kg (285-295); Potassium 4.2 mmol/L (3.5-5.1); Sodium 136 mmol/L (136-145)
[2023-01-11] MEDS: budesonide 0.5 mg/2 mL Neb INHALATION ×2 (07:38→20:38)
[2023-01-11] MEDS: ipratropium-albuterol 3 mL Neb INHALATION ×3 (07:39→20:38)
[2023-01-11] MEDS: ranolazine (12HR) 500 mg Tablet PO ×2 (08:12→20:39)
[2023-01-11] MEDS: gabapentin 100 mg Capsule PO ×2 (08:12→20:39)
[2023-01-11] MEDS: clopidogrel 75 mg Tablet PO (08:12)
[2023-01-11] MEDS: sotalol 80 mg Tablet PO ×2 (08:12→20:39)
[2023-01-11] MEDS: aspirin 81 mg Chew Tablet PO ×2 (08:12→16:51)
[2023-01-11] MEDS: sertraline 100 mg Tablet PO (08:12)
[2023-01-11] MEDS: losartan 50 mg Tablet 25 MG PO (08:12)
[2023-01-11] MEDS: isosorbide mononitrate ER 30 mg Tablet PO ×2 (08:12→20:39)
[2023-01-11] MEDS: docusate sodium 100 mg Capsule PO ×2 (08:13→16:52)
--- NOTE | 2023-01-11 11:32 | PM.PN ---
Subjective Subjective: Patient was seen this morning, he continues to have wheezing, he also reports upper respiratory tract wheezing, no fevers, no chills, persistent productive cough Vitals/I&O/Wt Last Vital Signs Temp 97.9 F 01/11/23 11:31 Pulse 71 01/11/23 11:31 Resp 17 01/11/23 08:00 BP 130/71 01/11/23 11:31 Pulse Ox 94 01/11/23 11:31 O2 Del Method Nasal Cannula 01/11/23 07:41 O2 Flow Rate 3 01/11/23 08:00 01/10/23 01/11/23 01/11/23 22:59 06:59 14:59 Intake Total 290 / 1130 350 / 1480 240 / 240 Balance 290 / 1130 350 / 1480 240 / 240 Physical Exam Const: COMMON NORMALS: no acute distress and patient oriented x3 Resp: COMMON NORMALS: normal respiratory effort, No retractions and No use of accessory muscles AUSCULTATION: wheezes Cardio: COMMON NORMALS: regular rate, regular rhythm, S1 normal heart sound present and S2 normal heart sound present RATE: regular rate RHYTHM: regular rhythm HEART SOUNDS: S1 normal heart sound present and S2 normal heart sound present GI: COMMON NORMALS: Normal to inspection, nondistended, normoactive bowel sounds present and non-tender Extremity: COMMON NORMALS: no pedal edema Neuro: COMMON NORMALS: patient oriented x3 Psych: COMMON NORMALS: mental status grossly normal Data 01/11/23 04:25 01/11/23 04:25 Micro: Microbiology 01/09/23 11:30 Gram Stain - Final Sputum - Expectorated Sputum Sputum Culture - Preliminary 01/09/23 11:24 Blood Culture - Preliminary Blood NEGATIVE TO DATE 01/09/23 11:24 Blood Culture - Preliminary Blood NEGATIVE TO DATE A&P Assessment and plan (1) Acute respiratory failure with hypoxia: (2) Acute exacerbation of chronic obstructive airways disease: (3) S/P CABG (coronary artery bypass graft): (4) Atrial fibrillation: Qualifiers: Atrial fibrillation type: persistent (not longstanding) Qualified Code(s): I48.19 - Other persistent atrial fibrillation (5) Hyperlipidemia: Qualifiers: Hyperlipidemia type: other hyperlipidemia Qualified Code(s): E78.49 - Other hyperlipidemia (6) Hypertension: Qualifiers: Hypertension type: unspecified Qualified Code(s): I10 - Essential (primary) hypertension (7) Coronary artery disease: Qualifiers: Coronary Disease-Associated Artery/Lesion type: [place] artery [place] vs. transplanted heart: [place] heart Associated angina: without angina Qualified Code(s): I25.10 - Atherosclerotic heart disease of [place] coronary artery without angina pectoris (8) Pneumonia: Plan Acute hypoxic respiratory failure -Potentially secondary to underlying pneumonia, has had multiple rounds of antibiotics, Rocephin, Decadron, Cipro however he has no white count, Pro-Shmuel within normal limits CRP slightly elevated, CT angiogram no focal infiltrates, could be typical infection -He did smoke he tells me roughly 50 years ago, has been a long time since he quit, possible COPD exacerbation? -Respiratory viral panel within normal limits -The other thought he does report choking and coughing after his meals, possible aspiration pneumonia, aspiration pneumonitis -Speech therapy eval, advance diet as tolerated -Follow blood cultures, sputum cultures, MRSA nares -Continue vancomycin, cefepime -Continue Decadron -Aspiration precautions -His troponins are slightly elevated, EKG no acute ST-T wave disc we will order cardiac echo -Resume home medications -Constipation, MiraLAX, had several BM -Full code -Lovenox for DVT prophylaxis spoke to patient, spoke to patient's , daughters all at bedside \ Plan for today continue antibiotics, continue steroids, up out of bed, does report globus sensation, he will need a nasal laryngeal endoscopy at some point, likely as outpatient, he follow-up with pulmonary as outpatient Attestations Medical Necessity Statement*: Patient requires hospitalization for persistent wheezing with acute hypoxic respiratory failure secondary to pneumonia, COPD exacerbation Diagnoses Acute respiratory failure with hypoxia J96.01 Acute exacerbation of chronic obstructive airways disease J44.1 S/P CABG (coronary artery bypass graft) Z95.1 Atrial fibrillation I48.19 Atrial fibrillation type: persistent (not longstanding) Hyperlipidemia E78.49 Hyperlipidemia type: other hyperlipidemia Hypertension I10 Hypertension type: unspecified Coronary artery disease I25.10 Coronary Disease-Associated Artery/Lesion type: [place] artery [place] vs. transplanted heart: [place] heart Associated angina: without angina Pneumonia J18.9
[2023-01-11 16:13] LABS: Vancomycin Trough 13.6 ug/mL (10-15)
[2023-01-11] MEDS: pantoprazole 40 mg SDV IVP (16:51)
[2023-01-11] MEDS: dexamethasone 10 mg/mL INJ 6 MG IVP (16:51)
[2023-01-11] MEDS: atorvastatin 40 mg Tablet 80 MG PO (16:51)
[2023-01-11] MEDS: enoxaparin 40 mg/0.4 mL Syringe SUBCUT (16:52)
[2023-01-11] MEDS: vancomycin 1,500 MG/300 ML PIGGYBACK 200 MG IV (16:52)
[2023-01-11 17:19] LABS: Methicillin-Resist S.aureu PCR NOT DETECTED (NOT DETECTED)
[2023-01-11] MEDS: temazepam 15 mg Capsule PO (20:39)
[2023-01-12] VITALS: BP 119/71; PULSE 75; RESP 18; TEMP 36.5
[2023-01-12] MEDS: cefepime 2,000 MG in sodium chloride 0.9% (plus) 50 ML 100 MG IV (00:19)
[2023-01-12 03:54] VITALS: BP 148/73; PULSE 82; RESP 18; TEMP 36.6; O2SAT 94
[2023-01-12 06:16] LABS: Basophils % 0.1 %; Hematocrit 42.9 % (42.0-52.0); Hemoglobin 13.8 g/dL (11.7-16.6); Lymphocytes # 1.1 10^3/uL (0.8-4.8); Lymphocytes % 11.6 %; Mean Corpuscular HGB Conc 32.2 g/dL (30.0-36.0); Mean Corpuscular Hemoglobin 31.2 pg (28.0-34.0); Mean Corpuscular Volume 96.8 fl (80-94); Mean Platelet Volume 9.9 fL (7.4-10.4); Monocytes # 0.5 10^3/uL (0.2-0.9); Monocytes % 5.4 %; Neutrophils # 7.76 10^3/uL (1.8-7.7); Neutrophils % 82.4 %; Nucleated Red Blood Cells % 0 %; Platelet Count 210 10^3/cmm (130-400); Red Blood Count 4.43 10^6/uL (4.1-5.3); Red Cell Distribution Width 13.8 % (12.1-15.1); White Blood Count 9.4 10^3/uL (4.0-10.0)
[2023-01-12 06:32] LABS: Blood Urea Nitrogen 19 mg/dL (8-23); Calcium 9.5 mg/dL (8.5-10.5); Carbon Dioxide 25 mmol/L (22-29); Chloride 100 mmol/L (98-107); Glucose 109 mg/dL (65-115); Osmolality Calculated 287 mOsm/kg (285-295); Sodium 137 mmol/L (136-145)
[2023-01-12] MEDS: albuterol 2.5 mg/3 mL Neb INHALATION (07:46)
[2023-01-12] MEDS: budesonide 0.5 mg/2 mL Neb INHALATION (07:48)
[2023-01-12 07:51] VITALS: PULSE 74; RESP 18; O2SAT 93
[2023-01-12 08:00] VITALS: BP 137/69; PULSE 64; TEMP 36.6; O2SAT 95
[2023-01-12 09:39] VITALS: BP 137/69
[2023-01-12] MEDS: isosorbide mononitrate ER 30 mg Tablet PO (09:39)
[2023-01-12] MEDS: ranolazine (12HR) 500 mg Tablet PO (09:39)
[2023-01-12] MEDS: sotalol 80 mg Tablet PO (09:39)
[2023-01-12] MEDS: clopidogrel 75 mg Tablet PO (09:39)
[2023-01-12] MEDS: losartan 50 mg Tablet 25 MG PO (09:39)
[2023-01-12] MEDS: aspirin 81 mg Chew Tablet PO (09:40)
[2023-01-12] MEDS: docusate sodium 100 mg Capsule PO (09:40)
[2023-01-12] MEDS: gabapentin 100 mg Capsule PO (09:40)
[2023-01-12] MEDS: sertraline 100 mg Tablet PO (09:40)
--- NOTE | 2023-01-12 11:23 | P.DS_ITS ---
Discharge Providers Date of Admission: 01/09/23 14:45 Date of Discharge: January 12, 2023 Attending Provider at Admission: Wilver Clarke MD Attending Provider at Discharge: Wilver Clarke MD Primary Care Provider: Jan De Paz MD Diagnoses at Discharge Discharge Diagnosis (1) Acute respiratory failure with hypoxia: Status: Acute (2) Acute exacerbation of chronic obstructive airways disease: Status: Acute (3) S/P CABG (coronary artery bypass graft): Status: Acute (4) Atrial fibrillation: Status: Acute Qualifiers: Atrial fibrillation type: persistent (not longstanding) Qualified Code(s): I48.19 - Other persistent atrial fibrillation Permanent problem details: Stable (5) Hyperlipidemia: Status: Acute Qualifiers: Hyperlipidemia type: other hyperlipidemia Qualified Code(s): E78.49 - Other hyperlipidemia (6) Hypertension: Status: Acute Qualifiers: Hypertension type: unspecified Qualified Code(s): I10 - Essential (primary) hypertension Permanent problem details: Stable (7) Coronary artery disease: Status: Acute Qualifiers: Coronary Disease-Associated Artery/Lesion type: [place] artery [place] vs. transplanted heart: [place] heart Associated angina: without angina Qualified Code(s): I25.10 - Atherosclerotic heart disease of [place] coronary artery without angina pectoris Permanent problem details: Patient had a four-vessel coronary bypass surgery in 2000 in [place] (8) Pneumonia: Status: Acute Reason for Visit Reason for Visit: Baldev sent for sob Hospital Course Hospital Course Kan Landaverde is a 87 year old male with a past medical history of fibrillation, not on anticoagulation, history of CABG, hypertension, hyperlipidemia, who has been on multiple rounds of antibiotics, steroids, for about a month history of cough, shortness of breath, fatigue, malaise.? Patient tells me that his symptoms started roughly about a month ago where he went to urgent care he was having cough, shortness of breath, fevers, chills, he was given an antibiotic shot, which she presume is the Rocephin, and Decadron.? However he did get better, so he saw his primary care was given another shot of steroids and antibiotics, but continued to not improve, then he was placed on ciprofloxacin.? He denies any chest pain, no palpitations.? Does complain of constipation.? Abdominal bloating.? No bloody or black stools reported.? He does report that recently he has been coughing and choking more after meals.? No history of aspiration.? No fevers currently, no chills.? No recent travel.? No history of COVID-19.? No history of calf pain or calf swelling, hemoptysis, no recent surgeries, no prolonged immobility, Patient was admitted to [facility] for acute hypoxic respiratory failure secondary to pneumonia, COPD exacerbation, received broad-spectrum antibiotic therapy, steroid therapy, breathing treatments, oxygen therapy, overall clinically improved. Discharged on prednisone burst, doxycycline, DuoNeb as needed albuterol as needed, Advair with close follow-up with primary care provider as outpatient, follow-up with Dr. Hope in 2 weeks. Due to his complaints of globus sensation, troubles with throat clearing, I referred him to ENT for consideration of nasal laryngeal endoscopy. If patient were to have worsening shortness of breath please go to the emergency room Physical Exam Const: COMMON NORMALS: no acute distress and patient oriented x3 Resp: COMMON NORMALS: normal respiratory effort, No retractions, No use of accessory muscles and clear to auscultation bilaterally AUSCULTATION: clear to auscultation bilaterally Cardio: COMMON NORMALS: regular rate, regular rhythm, S1 normal heart sound present and S2 normal heart sound present RATE: regular rate RHYTHM: regular rhythm HEART SOUNDS: S1 normal heart sound present and S2 normal heart sound present GI: COMMON NORMALS: Normal to inspection, nondistended, normoactive bowel sounds present and non-tender Extremity: COMMON NORMALS: no pedal edema Neuro: COMMON NORMALS: patient oriented x3 Psych: COMMON NORMALS: mental status grossly normal Discharge Data Studies Completed and Pending Completed Studies During Hospitalization Category Date Time Status CTA chest [CT angio chest PE protcl [id number]] Stat Cat Scan 01/09/23 12:18 Completed XR KUB portable [id number] Routine Exams 01/09/23 15:55 Completed XR chest 1V portable [id number] Stat Exams 01/09/23 11:04 [place] [id number] Routine Ultrasound 01/09/23 15:55 Completed CV. echo limited [id number] Routine Ultrasound 01/09/23 15:55 Completed Pending at discharge Category Date Time Status Basic Metabolic Panel AM LABS Lab 01/13/23 04:00 Ordered Blood Culture Stat Lab 01/09/23 11:24 Results Complete Blood Count w/Auto AM LABS Lab 01/13/23 04:00 Ordered Sputum Culture and Gram Stain Stat Lab 01/09/23 11:30 Results Radiology Impressions Chest X-Ray 01/09/23 11:04 IMPRESSION: Emphysematous change and interstitial prominence, without acute airspace disease. Chest CTA 01/09/23 12:18 IMPRESSION: 1. Proximal main pulmonary arteries are normal. Normal segmental and bailey bsegmental pulmonary arteries. No evidence of pulmonary embolus. 2. Prior sternotomy with CABG. 3. 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 4. No acute pulmonary infiltrates. KUB X-Ray 01/09/23 15:55 IMPRESSION: Large colonic stool burden. Laboratory Results WBC 9.4 10^3/uL (4.0-10.0) 01/12/23 04:28 RBC 4.43 10^6/uL (4.1-5.3) 01/12/23 04:28 Hgb 13.8 g/dL (11.7-16.6) 01/12/23 04:28 Hct 42.9 % (42.0-52.0) 01/12/23 04:28 MCV 96.8 fl (80-94) H 01/12/23 04:28 MCH 31.2 pg (28.0-34.0) 01/12/23 04:28 MCHC 32.2 g/dL (30.0-36.0) 01/12/23 04:28 RDW 13.8 % (12.1-15.1) 01/12/23 04:28 Plt Count 210 10^3/cmm (130-400) 01/12/23 04:28 MPV 9.9 fL (7.4-10.4) 01/12/23 04:28 Neut % (Auto) 82.4 % 01/12/23 04:28 Lymph % (Auto) 11.6 % 01/12/23 04:28 [place] % (Auto) 5.4 % 01/12/23 04:28 Eos % (Auto) 0.0 % 01/12/23 04:28 Baso % (Auto) 0.1 % 01/12/23 04:28 Neut # (Auto) 7.76 10^3/uL (1.8-7.7) H 01/12/23 04:28 Lymph # (Auto) 1.1 10^3/uL (0.8-4.8) 01/12/23 04:28 [place] # (Auto) 0.5 10^3/uL (0.2-0.9) 01/12/23 04:28 Eos # (Auto) 0.0 10^3/uL (0.0-0.8) 01/12/23 04:28 Baso # (Auto) 0.0 10^3/uL (0.0-0.1) 01/12/23 04:28 Nucleated RBC % (auto) 0 % 01/12/23 04:28 Nucleated RBCs # 0.0 /100WBC 01/12/23 04:28 Sodium 137 mmol/L (136-145) 01/12/23 04:28 Potassium 4.0 mmol/L (3.5-5.1) 01/12/23 04:28 Chloride 100 mmol/L (98-107) 01/12/23 04:28 Carbon Dioxide 25 mmol/L (22-29) 01/12/23 04:28 Anion Gap 16.0 (5-19) 01/12/23 04:28 BUN 19 mg/dL (8-23) 01/12/23 04:28 Creatinine 1.0 mg/dL (0.7-1.2) 01/12/23 04:28 GFR Calculation Not Reportable 01/12/23 04:28 Glucose 109 mg/dL (65-115) 01/12/23 04:28 Calculated Osmolality 287 mOsm/kg (285-295) 01/12/23 04:28 Lactic Acid 1.4 mmol/L (0.5-2.2) 01/09/23 12:10 Calcium 9.5 mg/dL (8.5-10.5) 01/12/23 04:28 Phosphorus 2.6 mg/dL (2.5-4.5) 01/10/23 04:23 Magnesium 1.9 mg/dL (1.7-2.3) 01/10/23 04:23 Total Bilirubin 0.8 mg/dL (0.15-1.2) 01/09/23 11:24 AST 27 U/L (0-40) 01/09/23 11:24 ALT 17 U/L (0-41) 01/09/23 11:24 Alkaline Phosphatase 57 U/L (40-130) 01/09/23 11:24 Troponin T Baseline 35 ng/L (0-15) H 01/09/23 11:32 Troponin T 120 Minute 32.93 ng/L (0-15) H 01/09/23 13:15 Delta Troponin T -2.07 ABS# (0-10) L 01/09/23 13:15 Troponin T Hi Sens 6Hr 29.52 ng/L (0-15) H 01/09/23 18:19 Troponin T Hi Sens 6Hr Delta -5.48 ng/L (0-12) L 01/09/23 18:19 C-Reactive Protein 22.3 mg/L (0.0-4.9) H 01/09/23 11:24 NT-Pro-B Natriuret Pep 325 pg/mL (0-450) 01/09/23 11:24 Total Protein 7.0 g/dL (6.6-8.7) 01/09/23 11:24 Albumin 4.5 g/dL (3.5-5.2) 01/09/23 11:24 Globulin 2.5 g/dL (1.3-4.6) 01/09/23 11:24 Procalcitonin 0.04 ng/mL (0-0.5) 01/09/23 11:24 TSH 2.23 uIU/mL (0.27-4.20) 01/09/23 11:24 Nasal Influ A H1 2008 PCR Not detected (NOT DETECT) 01/09/23 11:30 Vancomycin Trough 13.6 ug/mL (10-15) 01/11/23 15:45 Adenovirus (PCR) Not detected (NOT DETECT) 01/09/23 11:30 C. pneumoniae DNA (PCR) Not detected (NOT DETECT) 01/09/23 11:30 Coronavirus 229E (PCR) Not detected (NOT DETECT) 01/09/23 11:30 Human Metapneumovir PCR Not detected (NOT DETECT) 01/09/23 11:30 Influenza A (H1) PCR Not detected (NOT DETECT) 01/09/23 11:30 Influenza A (H3) PCR Not detected (NOT DETECT) 01/09/23 11:30 Influenza Type A (PCR) Not detected (NOT DETECT) 01/09/23 11:30 Influenza Type B (PCR) Not detected (NOT DETECT) 01/09/23 11:30 M. pneumoniae (PCR) Not detected (NOT DETECT) 01/09/23 11:30 Parainfluenza 1 (PCR) Not detected (NOT DETECT) 01/09/23 11:30 Parainfluenza 2 (PCR) Not detected (NOT DETECT) 01/09/23 11:30 Parainfluenza 3 (PCR) Not detected (NOT DETECT) 01/09/23 11:30 Parainfluenza 4 (PCR) Not detected (NOT DETECT) 01/09/23 11:30 RSV Type A (PCR) Not detected (NOT DETECT) 01/09/23 11:30 RSV Type B (PCR) Not detected (NOT DETECT) 01/09/23 11:30 Entero/Rhino (PCR) Not detected (NOT DETECT) 01/09/23 11:30 SARS-CoV-2 (PCR) Not detected (NOT DETECT) 01/09/23 11:30 MRSA (PCR) Not detected (NOT DETECTED) 01/09/23 18:40 Vitals Last Vital Signs Temp 97.9 F 01/12/23 08:00 Pulse 64 01/12/23 08:00 Resp 18 01/12/23 07:51 BP 137/69 01/12/23 09:39 Pulse Ox 95 01/12/23 08:00 O2 Del Method Nasal Cannula 01/12/23 07:51 O2 Flow Rate 4 01/12/23 07:51 Discharge Plan Discharge Patient Disposition: Home Condition: Stable Prescriptions: New benzonatate 100 mg Capsule 100 mg PO TID PRN (Reason: Cough) 7 Days Qty: 21 0RF albuterol sulfate 90 mcg/actuation HFA aerosol inhaler 1 inh inhalation Q6H PRN (Reason: shortness of breath or wheezing) Qty: 8.5 0RF prednisone 20 mg tablet 20 mg PO BID 5 Days Qty: 10 0RF fluticasone propion-salmeterol [Advair Diskus] 100-50 mcg/dose blister with device 1 inh inhalation BID Qty: 60 0RF ipratropium-albuterol 0.5 mg-3 mg(2.5 mg base)/3 mL solution for nebulization 3 ml inhalation Q6H PRN (Reason: shortness of breath or wheezing) 30 Days Qty: 90 0RF doxycycline hyclate 100 mg tablet 100 mg PO BID 3 Days Qty: 6 0RF Continued (DME) Walking Cane See Rx Instructions .Route .MEDSUPPLY Qty: 1 0RF Rx Instructions: As directed gabapentin 100 mg capsule 100 mg PO BID (DME) oxygen at 2L per NC See Rx Instructions .Route .MEDSUPPLY Qty: 1 0RF Rx Instructions: As directed. concentrator for home losartan 25 mg tablet 25 mg PO DAILY Qty: 30 11RF clopidogrel 75 mg tablet 75 mg PO DAILY Qty: 90 3RF isosorbide mononitrate 30 mg tablet extended release 24 hr 30 mg PO BID Qty: 180 3RF aspirin 81 mg Tablet,Chewable 81 mg PO BID cholecalciferol (vitamin D3) [Vitamin D3] 25 mcg (1,000 unit) Capsule 1,000 unit PO DAILY ranolazine 500 mg tablet extended release 12 hr 500 mg PO BID vitamin I30-oklqv acid 2,500-400 mcg Tablet,Disintegrating 1 tab PO DAILY sotalol 80 mg tablet 80 mg PO BID sertraline 100 mg tablet 100 mg PO DAILY temazepam 15 mg capsule 15 mg PO QPM Crestor 20 mg tablet 20 mg PO QPM Tussin DM 10-100 mg/5 mL Syrup 10 ml PO Q4H PRN (Reason: Cough) Enrique 128 5 % ointment See Rx Instructions .ROUTE .COMPLEX Rx Instructions: as directed Discontinued albuterol sulfate [Ventolin HFA] 90 mcg/actuation HFA aerosol inhaler 2 puff inhalation Q4H PRN (Reason: shortness of breath or wheezing) Qty: 8.5 5RF ciprofloxacin HCl 500 mg tablet 500 mg PO BID Qty: 20 0RF Discharge Orders: Discharge Order (Routine); Ordered 01/12/23 Ordered By: Wilver Clarke Other Ambulatory Orders: DME: Nebulizer with Neb Kit (Order) Location: None Selected Ordered By: Wilver Clarke Referrals: José Miguel Hope MD [Physician] - 2 weeks Alex Gaona MD [Physician] - 1 month Jan De Paz MD [Primary Care Provider] - Discharge Diet: Cardiac Discharge Activity: Resume usual activity Patient Instructions: Opioid Safety Activity Restrictions/Additional Instructions: - If you have worsening shortness of breath or wheezing go to the emergency room -Take antibiotics, steroids, breathing treatments as prescribed -Please see Dr. Hope in 2 weeks Discharge Attestations Time Spent in Discharge Care*: greater than 30 min Status at Discharge: Cognitive status at discharge: cognitively intact , Behavioral status at discharge: cooperative , Quality Metrics Clinical Quality Measures [ No reported AMI, CVA or VTE this stay] Coding Level of Care Code 51485 Total time (in minutes) for Discharge: 45 Diagnoses Acute respiratory failure with hypoxia J96.01 Acute exacerbation of chronic obstructive airways disease J44.1 S/P CABG (coronary artery bypass graft) Z95.1 Atrial fibrillation I48.19 Atrial fibrillation type: persistent (not longstanding) Hyperlipidemia E78.49 Hyperlipidemia type: other hyperlipidemia Hypertension I10 Hypertension type: unspecified Coronary artery disease I25.10 Coronary Disease-Associated Artery/Lesion type: [place] artery [place] vs. transplanted heart: [place] heart Associated angina: without angina Pneumonia J18.9
--- NOTE | 2023-01-12 11:47 | PC.SOCIAL ---
IMM update IMM updated with patient and family. Copy PG 2 provided. Verbalized an understanding. Initialled, dated, timed, and placed in chart.
[2023-01-12 12:03] VITALS: BP 137/69; PULSE 72; RESP 18; TEMP 36.6; O2SAT 96
== END 2023-01-12 12:04 | disposition home health service (06) | DRG 193 ==
LOC: ER 14:12 → MEDSURG 14:45
PROVIDERS: Admitting Provider Family Medicine; Emergency Provider Emergency Medicine; PCP Family Medicine; Visit Provider Family Medicine
DX: J18.9 Pneumonia, unspecified organism (principal); J96.01 Acute respiratory failure with hypoxia; J44.1 Chronic obstructive pulmonary disease with (acute) exacerbation; J44.0 Chronic obstructive pulmonary disease with (acute) lower respiratory infection; Z87.891 Personal history of nicotine dependence; I25.10 Atherosclerotic heart disease of native coronary artery without angina pectoris; Z95.0 Presence of cardiac pacemaker; Z95.1 Presence of aortocoronary bypass graft; I48.91 Unspecified atrial fibrillation; I10 Essential (primary) hypertension; E78.49 Other hyperlipidemia
CPT/HCPCS: 36415; 71045; 71275; 74018; 80048; 80053; 80202; 83605; 83735; 83880; 84100; 84145; 84443; 84484; 85025; 86140; 87040; 87070; 87205; 87486; 87581; 87633; 87641; 92523; 92610; 93005; 93308; 93970; 94640; 94664; 96365; 96367; 96372; 99285; C9113; J0692; J1100; J1650; J3370; J3372; J7512; J7613; J7626; Q9967

== ENCOUNTER → 2023-01-17 08:01 | Outpatient (BNVA) | payer MEDICARE, SELFPAY | PROVIDERS: PCP Family Medicine; Visit Provider Internal Medicine Cardiovascular Disease | DX: Z45.010 Encounter for checking and testing of cardiac pacemaker pulse generator [battery] (principal) | CPT/HCPCS: 93296 ==

== ENCOUNTER → 2023-02-26 09:34 | Outpatient (BNVA) | payer MEDICARE, SELFPAY | PROVIDERS: PCP Family Medicine; Visit Provider Internal Medicine Cardiovascular Disease | DX: I25.10 Atherosclerotic heart disease of native coronary artery without angina pectoris (principal); Z95.0 Presence of cardiac pacemaker; I10 Essential (primary) hypertension; E78.49 Other hyperlipidemia; I77.810 Thoracic aortic ectasia; Z95.1 Presence of aortocoronary bypass graft | CPT/HCPCS: 99214 ==

== ENCOUNTER → 2023-06-07 08:16 | Outpatient (BNVA) | payer MEDICARE, SELFPAY | PROVIDERS: PCP Family Medicine; Visit Provider Family Medicine | DX: I48.91 Unspecified atrial fibrillation (principal); E78.5 Hyperlipidemia, unspecified; I10 Essential (primary) hypertension; I25.10 Atherosclerotic heart disease of native coronary artery without angina pectoris | CPT/HCPCS: 80053; 80061; 85025 ==

== ENCOUNTER → 2023-09-04 16:23 | Outpatient (BNVA) | payer MEDICARE, SELFPAY | PROVIDERS: PCP Family Medicine; Visit Provider Internal Medicine Cardiovascular Disease | DX: R06.02 Shortness of breath (principal); Z79.899 Other long term (current) drug therapy | CPT/HCPCS: 80048; 99214 ==

== ENCOUNTER → 2023-10-23 11:28 | Outpatient (BNVA) | payer MEDICARE, SELFPAY | PROVIDERS: PCP Family Medicine; Visit Provider Internal Medicine Cardiovascular Disease | DX: Z45.010 Encounter for checking and testing of cardiac pacemaker pulse generator [battery] (principal) | CPT/HCPCS: 93296 ==

== ENCOUNTER → 2023-10-31 09:57 | Outpatient (BNVA) | payer MEDICARE, SELFPAY | PROVIDERS: PCP Family Medicine; Visit Provider Clinical Nurse Specialist Adult Health | DX: R10.9 Unspecified abdominal pain (principal) | CPT/HCPCS: 81000 ==

== ENCOUNTER → 2024-01-29 14:56 | Outpatient (BNVA) | payer MEDICARE, SELFPAY | PROVIDERS: PCP Family Medicine; Visit Provider Internal Medicine Cardiovascular Disease | DX: Z45.010 Encounter for checking and testing of cardiac pacemaker pulse generator [battery] (principal) | CPT/HCPCS: 93296 ==